=== PATIENT | female | born 1980 | race Caucasian/White ===

== ENCOUNTER 2019-05-01 13:08 | Inpatient (IN) | payer MEDICAID ==
[~2019-05-01] VITALS: Ht 165.1 cm; Wt 65.8 kg
--- NOTE | 2019-05-01 13:08 | NUR ---
Patient BIBA BLS, transferred to bed 5. RN evaluating patient at bedside.
[2019-05-01 13:10] VITALS: BP 130/64
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
--- NOTE | 2019-05-01 13:30 | NUR ---
PT ATTEMPTED TO USE RESTROOM, NO URINE COLLECTED
--- NOTE | 2019-05-01 13:33 | NUR ---
PT ADMITS TO BEING HOMELESS AT THIS TIME
--- NOTE | 2019-05-01 13:42 | NUR ---
ACCU CHECK 51, DR POLO NOTIFIED. INSTRUCTED PT TO DRINK JUICE
--- NOTE | 2019-05-01 13:45 | NUR ---
PT ADMITS TO [facility], LAB AT BEDSIDE WHEN ASKED IF PT IF SHE USES DRUGS SHE STATES " SOMETIMES" PT STATES SHE TAKES SEROQUEL, LAST TAKEN A COUPLE WEEKS AGO
--- NOTE | 2019-05-01 13:47 | NUR ---
DR RODRIGUEZ AT BEDSIDE
[2019-05-01 14:16] LABS: BASOPHILS # (AUTO) 0.1 K/uL (0.00-0.22); EOSINOPHILS % (AUTO) 0.3 % (0.0-4.0); HEMATOCRIT 37.5 % (36-48); HEMOGLOBIN 12.6 g/dL (12.0-16.0); LYMPHOCYTES # (AUTO) 1.4 K/uL (2.5-16.5); LYMPHOCYTES % (AUTO) 15.8 % (20.5-51.1); MEAN CORPUSCULAR HEMOGLOBIN 31 pg (27-31); MEAN CORPUSCULAR HGB CONC 34 g/dL (33-37); MEAN CORPUSCULAR VOLUME 90.3 fL (80-94); MONOCYTES # (AUTO) 0.7 K/uL (0.8-1.0); MONOCYTES % (AUTO) 7.6 % (1.7-9.3); NEUTROPHILS # (AUTO) 6.5 K/uL (1.8-7.7); NEUTROPHILS % (AUTO) 75.3 % (42.2-75.2); PLATELET COUNT (AUTO) 315 K/uL (140-450); RED BLOOD CELL COUNT(AUTO) 4.15 MIL/uL (4.20-5.40); RED CELL DISTRIBUTION WIDTH 13.5 % (11.6-13.7); WHITE BLOOD COUNT (AUTO) 8.7 K/uL (4.8-10.8)
[2019-05-01 14:25] LABS: APPEARANCE,URINE CLEAR (CLEAR); BILIRUBIN,URINE 1+ (NEGATIVE); BLOOD, URINE NEGATIVE (NEGATIVE); COLOR,URINE YELLOW (YELLOW); LEUKOCYTE ESTERASE ,URINE NEGATIVE (NEGATIVE); NITRITE, URINE NEGATIVE (NEGATIVE); UGLUCOSE NEGATIVE (NEGATIVE)
[2019-05-01 14:39] LABS: BARBITURATE, URINE NEGATIVE ng/ml (NEG <=200); BENZODIAZEPINE, URINE NEGATIVE ng/mL (NEG <=200); CANNABINOID, URINE NEGATIVE ng/mL (NEG <=50); COCAINE, URINE NEGATIVE ng/mL (NEG <=300); OPIATE, URINE NEGATIVE ng/mL (NEG <=2000); PHENCYCLIDINE SCREEN,URINE NEGATIVE ng/mL (NEG <=25)
[2019-05-01 14:40] LABS: ALBUMIN 4.4 g/dL (3.4-5.0); ANION GAP 16.1 (8-16); ASPARTATE AMINOTRANSFERASE 58 U/L (15-37); CHLORIDE 103 mmol/L (98-107); CREATININE 0.9 mg/dL (0.6-1.3); GFR ARICAN-AMERICAN 90 mL/min (>90); GLUCOSE 67 mg/dL (74-106); POTASSIUM 3.1 mmol/L (3.5-5.1); SODIUM SERUM 144 mmol/L (136-145); UREA NITROGEN, BLOOD 22 mg/dL (7-18)
[2019-05-01 14:46] LABS: ACETAMINOPHEN < 0.5 ug/ml (10-30); SALICYLATE < 2.8 mg/dL (2.8-20.0)
--- NOTE | 2019-05-01 14:58 | NUR ---
ACCU CHECK 71
[2019-05-01] MEDS ORDERED: MAGNESIUM OXIDE 400 MG TAB PO ONE (15:00)
[2019-05-01] MEDS ORDERED: POTASSIUM CHLORIDE 10 MEQ TABER PO ONE (15:00)
--- NOTE | 2019-05-01 15:02 | NUR ---
Telepsychiatry consultation ordered as requested by Dr. Francis.
--- NOTE | 2019-05-01 15:13 | NUR ---
VS STABLE, PT RESTING IN BED
--- NOTE | 2019-05-01 15:14 | NUR ---
POTASSIUM AND MAGNESIUM ADMINISTERED PO
--- NOTE | 2019-05-01 15:43 | NUR ---
pt amb to restroom with cam emt, 1-1 sitter
--- NOTE | 2019-05-01 16:50 | NUR ---
accu check 98
--- NOTE | 2019-05-01 16:50 | NUR ---
accu check 98
--- NOTE | 2019-05-01 18:10 | NUR ---
PT ALERT AND AWAKE, 1-1 SITTER AT BEDSIDE.
--- NOTE | 2019-05-01 18:32 | NUR ---
telepsych speaking with patient
--- NOTE | 2019-05-01 18:44 | NUR ---
dr seay at bedside
--- NOTE | 2019-05-01 19:00 | NUR ---
PSYCHIATRIST STATES PT DOES NOT NEED TO BE ON A 5150 HOLD
--- NOTE | 2019-05-01 19:19 | NUR ---
REPORT GIVEN TO TAD GARDNER, TRANSFER OF CARE. PT UPRIGHT IN BED, FOOD AT BEDSIDE, 1-1 SITTER. PT ALERT AND AWAKE
--- NOTE | 2019-05-01 19:42 | NUR ---
PATIENT ALERT AND AWAKE, BREATHING EVEN AND UNLABORED
[2019-05-01] MEDS ORDERED: QUEtiapine FUMARATE 100 MG TAB PO SCH (20:40)
--- NOTE | 2019-05-01 20:40 | NUR ---
PER TELEPSYCHE , WANTS TO CONTINUE HOLD ON PATIENT. DR BAUM MADE AWARE
--- NOTE | 2019-05-01 20:44 | NUR ---
[facility] aware of patient. will assist with placement if assistance is needed.
--- NOTE | 2019-05-01 21:10 | NUR ---
PATIENT CONSISTENTLY TRYING TO LEAVE BED, SITTER AT BEDSIDE. ERMD MADE AWARE
--- NOTE | 2019-05-01 21:57 | NUR ---
PATIENT ALERT AND AWAKE, BREATHING EVEN AND UNLABORED
[2019-05-01] MEDS ORDERED: diphenhydrAMINE 50 MG/ML VIAL IM ONE (22:05)
[2019-05-01] MEDS ORDERED: HALOPERIDOL IM 5 MG/ML VIAL IM ONE (22:05)
--- NOTE | 2019-05-01 22:10 | NUR ---
PATIENT NOT ABLE TO BE CALMED BY STAFF, CLENCHES FISTS
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
--- NOTE | 2019-05-01 22:15 | NUR ---
PATIENT PLACED ON RESTRAINTS ORDERED BY STAFF, SITTER REMAINS AT BEDSIDE
--- NOTE | 2019-05-01 22:35 | NUR ---
PATIENT TAKEN OFF RESTRAINTS, RESTING WITH EYES CLOSED BREATHING EVEN AND UNLABORED
--- NOTE | 2019-05-01 22:44 | NUR ---
Called the following facilities: [facility] no beds, packet fax for transfer list [facility] s/w Cristopher, no beds packet fax for wait list [facility] s/w Katlyn no available beds for [facility] no answer [facility] s/w Sachin, packet fax for review
--- NOTE | 2019-05-01 22:45 | NUR ---
PATIENT RESTING WITH EYES CLOSED, BREATHING EVEN AND UNLABORED
--- NOTE | 2019-05-01 23:04 | NUR ---
[facility] no answer. Packet fax for wait list
--- NOTE | 2019-05-01 23:09 | NUR ---
Packet faxed to [facility]
--- NOTE | 2019-05-01 23:48 | NUR ---
PATIENT BREATHING EVEN AND UNLABORED, RESTING WITH EYES CLOSED
--- NOTE | 2019-05-02 01:04 | NUR ---
PATIENT RESTING WITH EYES CLOSED, BREATHING EVEN AND UNLABORED
--- NOTE | 2019-05-02 02:00 | NUR ---
PATIENT RESTING WITH EYES CLOSED, BREATHING EVEN AND UNLABORED
[2019-05-02] MEDS ORDERED: NACL 0.9% 1,000 ML IV SCH (02:16)
[2019-05-02] MEDS ORDERED: ACETAMINOPHEN 325 MG TAB PO PRN (02:20)
[2019-05-02] MEDS ORDERED: ONDANSETRON 4 MG/2 ML VIAL IVP PRN (02:20)
--- NOTE | 2019-05-02 02:50 | NUR ---
ADMITTED 39 Y/O FEMALE. TRANSPORTED VIA GURNEY FROM E.. PATIENT IS ASLEEP. PER ENDORSEMENT FROM ER NURSE JERSON THEY SEDATED THE PATIENT DUE TO COMBATIVENESS. NO SOB. RESPIRATION EVEN AND UNLABORED. NO IV SITE. PATIENT IS ON ONE TO ONE SITTER DUE TO CC OF SUICIDAL 51/50 HOLD. PATIENT UNABLE TO PROVIDE ANSWERS DUE TO PATIENT CONDITION. CHARGE NURSE FELECIA IS AWARE. WILL CONTINUE TO MONITOR. LOW BED AND BED ALARM IN PLACE. CALL LIGHT WITHIN REACH.
--- NOTE | 2019-05-02 02:50 | NUR ---
Patient will be admitted to care of DR SUAREZ. Admited to [facility]. Will go to room 124B. Belongings list completed. Report to YOHANNES GARDNER.
[2019-05-02 03:32] LABS: FREE T4 (FREE THYROXINE) 1.15 ng/dL (0.76-1.46); PHOSPHORUS 4.1 mg/dL (2.5-4.9); THYROID STIMULATING HORMONE 2.23 uIU/mL (0.34-3.74)
[2019-05-02 04:00] VITALS: BP 96/64
[2019-05-02] MEDS ORDERED: LORazepam 2 MG/ML VIAL IVP PRN (04:25)
[2019-05-02] MEDS ORDERED: MULTIVITAMIN-12 10 ML, THIAMINE 100 MG, MAGNESIUM SULFATE 50% 2,000 MG, FOLIC ACID 1 MG... IV SCH ×10 (04:25→09:00)
--- NOTE | 2019-05-02 04:30 | NUR ---
PATIENT REFUSED IV INSERTION. IS AWARE.
[2019-05-02] MEDS ORDERED: LORazepam 1 MG TAB PO SCH (05:00)
--- NOTE | 2019-05-02 05:00 | NUR ---
PATIENT IS ASLEEP. TRIED TO WAKE PATIENT. ATIVAN 1MG PO NOT GIVEN DUE TO PATIENT SLEEPING. NO EPISODE OF COMBATIVENESS. RESPIRATION EVEN AND UNLABORED. NO SOB NOTED.
--- NOTE | 2019-05-02 05:36 | NUR ---
Still no beds in any of the designated facilities. Call later in the AM for discharges. Will endorse to incoming shift to further seek placement
--- NOTE | 2019-05-02 06:58 | NUR ---
recieved report from noc shift at this time there are still no avail beds will f/u and continue to assist in placement
--- NOTE | 2019-05-02 06:59 | NUR ---
ENDORSE PATIENT TO AM SHIFT RN FOR CONTINUITY OF CARE.
--- NOTE | 2019-05-02 07:25 | NUR ---
RECEIVED REPORT FROM [employer] NURSE, MIRA, FOR CONTINUITY OF CARE. PT IS RESTING IN BED, AROUSABLE TO VOICE. AA&OX2. RESPIRATIONS ARE EVEN AND UNLABORED, BREATHING TO RA. NO IV, PT REFUSED. SKIN IS INTACT. SAFETY MEASURES ARE IN PLACE; CALL LIGHT WITHIN REACH, BED IN LOW POSITION. NO DISTRESS NOTED. SITTER 1:1. WILL CONTINUE TO MONITOR.
[2019-05-02 08:00] VITALS: BP 107/66
[2019-05-02] MEDS ORDERED: QUEtiapine FUMARATE 25 MG TAB PO SCH (09:00)
[2019-05-02] MEDS ORDERED: THIAMINE 100 MG TAB PO SCH (09:00)
[2019-05-02] MEDS ORDERED: MULTIVITAMIN 1 TAB PO SCH (09:00)
[2019-05-02] MEDS ORDERED: FOLIC ACID 1 MG TAB PO SCH (09:00)
[2019-05-02] MEDS ORDERED: DOCUSATE SODIUM 100 MG GELCAP PO SCH (09:00)
--- NOTE | 2019-05-02 09:00 | NUR ---
PT AM MEDS WERE REFUSED BY PATIENT. NOTIFIED OF PATIENTS THE RISKS AND BENEFITS OF NOT TAKING MEDS. PT IS AWAKE AND RESPONSIVE. PT IS RESTING IN BED. WILL CONTINUE TO MONITOR. CALL LIGHT IN REACH.
--- NOTE | 2019-05-02 09:28 | NUR ---
PATIENT HAS BEEN SCREENED AND CATEGORIZED LOW NUTRITION RISK. PATIENT WILL BE SEEN WITHIN 7 DAYS OF ADMISSION. 05/08/[address]
--- NOTE | 2019-05-02 09:39 | NUR ---
PT REFUSED LAB DRAW. PT WAS ASKED ONCE AGAIN IF SHE WANTED MEDS. PT REFUSED ALL MEDS AND LAB DRAW. SITTER BY BEDSIDE. WILL CONTINUE TO MONITOR. CALL LIGHT IN REACH.
--- NOTE | 2019-05-02 10:32 | NUR ---
SPOKE WITH JENNIFER AT [facility]---NO AVAIL BEDS SPOKE WITH MAX AT [facility] PT HAS BEEN APPROVED JUST AWAITING AN OPEN BED WILL CONT TO F/U AND ASSIST IN PLACEMENT
--- NOTE | 2019-05-02 11:25 | NUR ---
Received call from Briana. Patient has been accepted to [facility] Unit #2, bed #1504-B, Under Dr. Richardson. For report please call [phone].
--- NOTE | 2019-05-02 11:30 | NUR ---
PT IS IN BED, RESPONSIVE TO VOICE. NO ACUTE DISTRESS NOTED AT THIS TIME. SAFETY MEASURES IN PLACE. SITTER 1:1 AT BEDSIDE. WILL CONTINUE TO MONITOR.
[2019-05-02] MEDS ORDERED: LORA-476 PO (12:14)
[2019-05-02] MEDS ORDERED: THIA-34 PO (12:14)
[2019-05-02] MEDS ORDERED: MULT-405 PO (12:14)
[2019-05-02] MEDS ORDERED: ATI2I IVP (12:14)
[2019-05-02] MEDS ORDERED: QUET25TA46 PO (12:14)
--- NOTE | 2019-05-02 13:30 | NUR ---
SPOKE WITH ANNE-MARIE GARDNER, FROM [facility] AT [phone], AND GAVE REPORT FOR TRANSFER. PT IS TO TRANSFER TO [facility] UNIT #2 BED 1504-B, UNDER DR. PINK. 5150 HOLD WAS IN CHART. STARTED ON 05/01/2019 AT 1239. GAVE PT DISCHARGE INSTRUCTIONS TO TRANSPORT PERSONNEL. UNABLE TO ASSESS INFLUENZA AND PNEUMOCOCCAL VACCINE STATUS. NO IV ON PATIENT. ARM BANDS REMOVED. CALLED MOTHER TO INFORM OF TRANSFER, FROM THE CONTACT INFORMATION PROVIDED, UNABLE TO CONTACT MOTHER. PT WAS TAKEN IN A GURNEY BY TRANSPORT. NO COMPLAINTS OF PAIN. NO AGITATION NOTED AT DISCHARGE. PT'S BELONGINGS WERE WITH HER. PT STABLE AT DISCHARGE.
--- NOTE | 2019-05-02 13:44 | NUR ---
CONTACTED [facility] [phone] TO CONFIRM ADDRESS, ABLE TO SPEAK TO ANNE-MARIE GARDNER. SHE PROVIDED ME WITH [id number] [facility], [place] [address]. CONTACTED [facility], ABLE TO SPEAK TO ANJU. PROVIDED HER WITH THE ADDRESS, ROOM NUMBER AND ACCEPTING DOCTOR. PER ANJU AMBULANCE IS EN ROUTE. PRIMARY RN KARSTEN MADE AWARE.
== END 2019-05-02 14:20 | DRG 424 ==
LOC: MED 13:08 → MTU 05-02 02:25
PROVIDERS: ADMIT General Practice; ATTEND General Practice
DX: E16.2 Hypoglycemia, unspecified (principal); G93.41 Metabolic encephalopathy; F20.9 Schizophrenia, unspecified; R45.851 Suicidal ideations; E86.0 Dehydration; F15.90 Other stimulant use, unspecified, uncomplicated; F17.210 Nicotine dependence, cigarettes, uncomplicated; E87.6 Hypokalemia; F10.10 Alcohol abuse, uncomplicated; Y90.0 Blood alcohol level of less than 20 mg/100 ml; Z59.0 Homelessness
CPT/HCPCS: 36415; 71045; 80053; 80305; 81003; 82150; 82948; 83690; 83735; 83880; 84100; 84439; 84443; 84484; 85025; 87081; 96372; 99285; A9153; G0480; G0482; J1200; J1630; J3411; J3475; J3490; J7030; Q0092